=== PATIENT | male | born 1940 | race Caucasian/White ===

== ENCOUNTER 2020-06-13 20:41 | Emergency (ER) | payer BC, MEDICARE ==
[~2020-06-13] VITALS: Ht 188 cm; Wt 110.0 kg
[2020-06-13] MEDS ORDERED: LIDOCAINE 1%-EPI 1:100K, 20ML INFIL ONE (21:00)
[2020-06-13] MEDS ORDERED: DIPH,PERTUSS(ACELL),TET VAC/PF NC IM-VACC ONE (21:00)
[2020-06-13] MEDS ORDERED: LIDOCAINE-MPF 1%, 2ML ONE (21:02)
[2020-06-13] MEDS ORDERED: DIPH,PERTUSS(ACELL),TET VAC/PF 0.5 ML IM-VACC ONE (21:02)
[2020-06-13 22:13] VITALS: BP 142/72
== END 2020-06-13 22:15 | disposition home or self-care (01) ==
LOC: ED 22:02
DX: S81.811A Laceration without foreign body, right lower leg, initial encounter (principal); W26.9XXA Contact with unspecified sharp object(s), initial encounter; Y93.89 Activity, other specified; Y92.009 Unspecified place in unspecified non-institutional (private) residence as the place of occurrence of the external cause; Y99.8 Other external cause status
CPT/HCPCS: 12002; 90471; 90715; 99283